=== PATIENT | female | born 1980 | race Caucasian/White ===

== ENCOUNTER 2017-11-02 14:04 | Emergency (ER) | payer MEDICAID ==
[~2017-11-02] VITALS: Ht 162.6 cm; Wt 85.0 kg
[2017-11-02] MEDS ORDERED: HYDROmorphone inj. 0.5 MG/0.5 ML DISP.SYRIN IV ONE (14:50)
[2017-11-02] MEDS ORDERED: normal saline 1000ML IV soln IVB ONE (14:50)
[2017-11-02] MEDS ORDERED: ondansetron/PF 4mg/2ml inj IV ONE (14:50)
[2017-11-02 15:22] LABS: BASOPHILS % (AUTO) 0.2 % (0-1); EOSINOPHILS # (AUTO) 0.1 X10'3 (0-0.9); EOSINOPHILS % (AUTO) 0.9 % (0-6); HEMATOCRIT 41.4 % (35.0-45.0); HEMOGLOBIN 14.3 g/dl (12.0-16.0); LYMPHOCYTES # (AUTO) 2.9 X10'3 (1.1-4.8); LYMPHOCYTES % (AUTO) 24.3 % (21-51); MEAN CORPUSCULAR HEMOGLOBIN 28.1 PG (27.0-31.0); MEAN CORPUSCULAR HGB CONC 34.4 % (33.0-36.5); MEAN CORPUSCULAR VOLUME 81.6 FL (78-98); MEAN PLATELET VOLUME 7.7 FL (7.4-10.4); MONOCYTES # (AUTO) 0.3 X10'3 (0-0.9); MONOCYTES % (AUTO) 2.9 % (2-12); NEUTROPHILS # (AUTO) 8.6 X10'3 (1.8-7.7); NEUTROPHILS % (AUTO) 71.7 % (42-75); PLATELET COUNT 329 X10'3 (140-440); RED BLOOD COUNT 5.08 X10'6 (4.20-5.60); RED CELL DISTRIBUTION WIDTH 13.6 % (11.5-14.5)
[2017-11-02 15:42] LABS: ALANINE AMINOTRANSFERASE 36 U/L (12-78); ALBUMIN 4.1 G/DL (3.4-5.0); ALBUMIN/GLOBULIN RATIO 1.1 (1.1-1.5); ALKALINE PHOSPHATASE 82 IU/L (46-116); ANION GAP 13 (8-16); ASPARTATE AMINO TRANSFERASE 40 U/L (10-37); BILIRUBIN,TOTAL 0.6 MG/DL (0.1-1.0); BLOOD UREA NITROGEN 16 MG/DL (7-18); BUN/CREATININE RATIO 26.7 (6.6-38.0); CALCIUM 9.4 MG/DL (8.5-10.1); CHLORIDE 104 MMOL/L (99-107); GLUCOSE 98 MG/DL (70-104); LIPASE 194 U/L (73-393); POTASSIUM 3.8 MMOL/L (3.5-5.1); SODIUM 141 MMOL/L (135-145); TOTAL CARBON DIOXIDE 24.5 MMOL/L (24-32); eGFR > 90 ML/MIN
[2017-11-02 15:59] LABS: CLARITY,URINE CLEAR (Clear); COLOR,URINE YELLOW (Yellow); GLUCOSE, URINE NEGATIVE (Neg); KETONES,URINE 40 mg/dl (Neg); LEUKOCYTE ESTERASE ,URINE NEGATIVE (Neg); NITRITES, URINE NEGATIVE (Neg); OCCULT BLOOD,URINE NEGATIVE (Neg); PH,URINE 6.5 (4.8-8.0); PROTEIN,URINE NEGATIVE (Neg)
[2017-11-02 16:06] LABS: UA COLLECTION TYPE CLN CATCH MIDSTREAM
[2017-11-02 16:20] VITALS: BP 111/49
== END 2017-11-02 16:21 | disposition home or self-care (01) ==
LOC: ER 14:05
DX: R10.13 Epigastric pain (principal); R11.10 Vomiting, unspecified; Z88.0 Allergy status to penicillin; Z98.84 Bariatric surgery status
CPT/HCPCS: 36415; 76700; 80053; 81003; 83690; 85025; 99285; J1170; J2405; J7030